=== PATIENT | male | born 1965 | race Caucasian/White ===

== ENCOUNTER 2019-12-28 10:25 | Emergency (ER) | payer MEDICAID, OTHER ==
[~2019-12-28] VITALS: Ht 181.6 cm; Wt 86.4 kg
[~2019-12-28 10:25] MED LIST: GABA300C PO; MELO15TA13 PO
[2019-12-28 10:36] VITALS: BP 120/67
--- NOTE | 2019-12-28 10:38 | NUR ---
Patient seen and assessed by Provider.
== END 2019-12-28 10:47 | disposition home or self-care (01) ==
LOC: ER 10:26
DX: F15.10 Other stimulant abuse, uncomplicated (principal); Z59.0 Homelessness; Z79.899 Other long term (current) drug therapy
CPT/HCPCS: 99281

== ENCOUNTER 2021-09-02 09:29 | Emergency (ER) | payer MEDICAID ==
[~2021-09-02] VITALS: Ht 182.9 cm; Wt 81.8 kg
[2021-09-02 10:20] VITALS: BP 125/94
[2021-09-02] MEDS ORDERED: CEPH250T PO (10:25)
[2021-09-02] MEDS ORDERED: DOXY100C76 PO (10:25)
== END 2021-09-02 13:49 | disposition home or self-care (01) ==
LOC: ER 09:30
DX: L03.116 Cellulitis of left lower limb (principal); F15.90 Other stimulant use, unspecified, uncomplicated; Z59.00 Homelessness unspecified; Z79.2 Long term (current) use of antibiotics; Z79.899 Other long term (current) drug therapy
CPT/HCPCS: 99283